=== PATIENT | female | born 1945 | race Caucasian/White ===

== ENCOUNTER 2021-03-15 06:54 | Day surgery (SDC) | payer OTHER, SELFPAY ==
[~2021-03-15] VITALS: Ht 152.4 cm; Wt 68.0 kg
[~2021-03-15 06:54] MED LIST: CEFAZOLIN SOD 1 GM in D5W 50 ML IV ONE
[2021-03-15] MEDS ORDERED: SEVOFLURANE 15 MIN GAS INH ONE (08:45)
[2021-03-15] MEDS ORDERED: NS 1000 ML IV.SOLN IV ONE (08:45)
[2021-03-15] MEDS ORDERED: ONDANSETRON HCL 4 MG/2 ML VIAL IVP ONE (08:45)
[2021-03-15] MEDS ORDERED: KETOROLAC TROMETHAMINE 30 MG VIAL IVP ONE (08:45)
[2021-03-15] MEDS ORDERED: PROPOFOL 200MG/ 20ML VIAL (DIPRIVAN) IV ONE (08:45)
[2021-03-15] MEDS ORDERED: ONDANSETRON HCL 4 MG/2 ML VIAL IVP PRN (09:30)
[2021-03-15] MEDS ORDERED: OXYCODONE/ACETAMINOPHEN 5-325 TABLET PO PRN ×2 (09:30)
[2021-03-15] MEDS ORDERED: HYDROcodone/ACETAMIN 5-325 MG TAB (NORCO/ VICODIN) PO PRN (09:30)
[2021-03-15] MEDS ORDERED: HYDROmorphone 1 MG/ML INJ. CARTRIDGE IVP PRN (09:45)
[2021-03-15] MEDS ORDERED: METOCLOPRAMIDE HCL 10 MG/2 ML VIAL IVP PRN (09:45)
[2021-03-15] MEDS ORDERED: KETOROLAC TROMETHAMINE 15 MG VIAL IVP PRN (09:45)
[2021-03-15] MEDS ORDERED: HYDROmorphone 1 MG/ML INJ. CARTRIDGE ONE (10:00)
[2021-03-15 11:00] VITALS: BP_SYST 141
== END 2021-03-15 11:20 | disposition home or self-care (01) ==
LOC: SDS 06:54 → SMU 06:55 → SDS 11:20
PROVIDERS: ATTEND Specialist
DX: R93.89 Abnormal findings on diagnostic imaging of other specified body structures (principal); N84.0 Polyp of corpus uteri; N81.10 Cystocele, unspecified; R10.2 Pelvic and perineal pain; Z78.0 Asymptomatic menopausal state; I10 Essential (primary) hypertension; Z79.899 Other long term (current) drug therapy
CPT/HCPCS: 36415; 58558; 87426; 88305; J0690; J1170; J1885; J2405; J2704; J7030; J7060